=== PATIENT | male | born 1955 | race Caucasian/White ===

== ENCOUNTER 2017-05-16 12:26 | Emergency (ER) | payer OTHER ==
[2017-05-16] MEDS ORDERED: AUGMENTIN500TAB PO (16:20)
[2017-05-16] MEDS ORDERED: PERCOCET 10/31 COMBO PO (16:20)
[2017-05-16 16:40] VITALS: BP 119/74
== END 2017-05-16 16:40 | disposition home or self-care (01) | DRG 605 ==
LOC: ED 12:26
PROC: 0JQH3ZZ Repair Left Lower Arm Subcutaneous Tissue and Fascia, Percutaneous Approach (ICD-10-PCS; principal; 2017-05-16)
PROC: 0HQGXZZ Repair Left Hand Skin, External Approach (ICD-10-PCS; 2017-05-16)
PROC: 0HQEXZZ Repair Left Lower Arm Skin, External Approach (ICD-10-PCS; 2017-05-16)
DX: S61.512A Laceration without foreign body of left wrist, initial encounter (principal); E78.5 Hyperlipidemia, unspecified; S61.012A Laceration without foreign body of left thumb without damage to nail, initial encounter; S61.412A Laceration without foreign body of left hand, initial encounter; W54.0XXA Bitten by dog, initial encounter; Y92.008 Other place in unspecified non-institutional (private) residence as the place of occurrence of the external cause